=== PATIENT | female | born 1950 | race Asian ===

== ENCOUNTER → 2017-07-15 | Outpatient (CLI) | payer OTHER ==
[~2017-07-15] MED LIST: ALENDRONATE SOD70 MG PO; AMOXICILLIN875 MG PO; CENTRUM SILVER1 EAC2 PO; MEDROLDOSEPACK PO; PREDNISONE 5 MG5 M1 PO; PROMETH-CODEIN 65 ML PO; PROVENTIL HFA6.7 G1 INH; TUMS PO; VITAMINC500 PO
--- NOTE | ~2017-07-15 | 2DMMODE ---
[facility] [address] [place] [address] 2 D/M-MODE ECHOCARDIOGRAM Name: GURPREET RUBALCAVA BEATA Room #: [id number] Admission: 07/15/17 Attend Phys: Jorge Domínguez, Discharge: Date of : 46 Date of Service: 07/15/17 1552 Report #: [id number] THIS REPORT FOR: //name// APPROVED REPORT Study performed: 07/15/2017 14:10:35 EXAM: Comprehensive 2D, Doppler, and color-flow Echocardiogram Patient Location: Out-Patient Room #: Echo lab Status: routine BSA: 1.78 HR: 77 bpm BP: 162/84 mmHg Other Information Study Quality: Adequate Indications Pulmonary Hypertension Dyspnea 2D Dimensions RVDd: 37.44 mm LVEF(%): 63.43 (>50%) IVSd: 12.90 (7-11mm) LVOT Diam: 20.12 (18-24mm) LVDd: 39.88 mm PWd: 11.54 (7-11mm) Ascending Ao: 29.88 (22-36mm) LVDs: 26.34 (25-40mm) Aortic Root: 31.14 mm IVC: 22.00 mm Thurston's LVEF: 63.43 % Volumes Left Atrial Volume (Systole) Single Plane 4CH: 50.01 mL Single Plane 2CH: 41.66 mL LA ESV Index: 28.00 mL/m2 Aortic Valve AoV Peak Cortes.: 1.41 m/s AO Peak Gr.: 7.95 mmHg LVOT Max P.35 mmHg LVOT Max V: 1.26 m/s Vmax: 2.84 cm2 Mitral Valve E/A Ratio: 0.5 MV Decel. Time: 391.20 ms [facility] [place] [address] 2 D/M-MODE ECHOCARDIOGRAM Name: GURPREET RUBALCAVA Room #: [facility]#: [id number] Admission: 07/15/17 Attend Phys: Jorge Domínguez, Discharge: Date of : 46 Date of Service: 07/15/17 1552 Report #: [id number] MV E Max Cortes.: 0.77 m/s MV A Cortes.: 1.44 m/s MV PHT: 113.45 ms IVRT: 143.02 ms Pulmonary Valve PV Peak Cortes.: 1.03 m/s PV Peak Gr.: 4.27 mmHg Pulmonary Vein P Vein S: 0.75 m/s P Vein A: 0.30 m/s P Vein D: 0.48 m/s P Vein A Dur.: 124.6 msec P Vein S/D Ratio: 1.56 Tricuspid Valve TR Peak Cortes.: 3.43 m/s TR Peak Gr.: 47.00 mmHg PA Pressure: 57.00 mmHg Left Ventricle The left ventricle is normal size. Mild concentric left ventricular hypertrophy. The left ventricular systolic function is normal. The left ventricular ejection fraction is within the normal range. LVEF is 60-65%. Grade I - abnormal relaxation pattern. Right Ventricle The right ventricle is normal size. The right ventricular systolic function is normal. Atria The left atrium size is normal. The right atrium size is normal. Aortic Valve The aortic valve is normal in structure. Trace to mild aortic regurgitation. There is no aortic valvular stenosis. Mitral Valve The mitral valve is normal in structure. There is no mitral valve regurgitation noted. No evidence of mitral valve stenosis. Tricuspid Valve The tricuspid valve is normal in structure. There is trace to mild tricuspid regurgitation. The right atrial pressure is estimated at mmHg. There is moderate pulmonary hypertension. Pulmonic Valve [address] [address] 2 D/M-MODE ECHOCARDIOGRAM Name: GURPREET RUBALCAVA BEATA Room #: REG CL [facility]#: [id number] Admission: 07/15/17 Attend Phys: Jorge Domínguez, Discharge: Date of : 46 Date of Service: 07/15/17 1552 Report #: [id number] The pulmonary valve is normal in structure. Trace pulmonic regurgitation. Great Vessels The aortic root is normal in size. IVC is dilated and collapses >50% with inspiration. Pericardium There is no pericardial effusion. <Conclusion> The left ventricle is normal size. LVEF is 60-65%. The aortic valve is normal in structure. Trace to mild aortic regurgitation. The mitral valve is normal in structure. The pulmonary valve is normal in structure. Trace pulmonic regurgitation. <ELECTRONICALLY SIGNED> By: Wood Hatch MD 07/15/17 [phone] Wood Hatch MD /INF
== END ==
LOC: CV 13:34
DX: I27.20 Pulmonary hypertension, unspecified (principal); R06.00 Dyspnea, unspecified

== ENCOUNTER 2017-09-20 09:46 | Inpatient (IN) | payer OTHER ==
[2017-09-20] VITALS (15 sets, daily range): BP systolic 81–119; BP diastolic 45–79
[~2017-09-20] VITALS: Ht 157.5 cm; Wt 70.6 kg
--- NOTE | ~2017-09-20 | H ---
[facility] [place] [address] HISTORY AND PHYSICAL Name: GURPREET RUBALCAVA Room #: 241-P ADM IN M.R.#: [id number] Admission: 09/20/17 Attend Phys: Rigoberto Franco MD Discharge: Date of : 46 Report #: [id number] THIS REPORT FOR: //name// CC: Hussain Franco DATE OF SERVICE: 09/20/2017 CHIEF COMPLAINT: Generalized weakness and shaking. HISTORY OF PRESENT ILLNESS: The patient is a 66-year-old female with history of bronchiolitis obliterans organizing pneumonia, who has not felt well during last few days or so. The patient states that she lost appetite for some reason. She continued to take her large doses of diuretics, including metolazone and furosemide. She is on furosemide 80 mg b.i.d. and metolazone 2.5 mg 3 times a week. Last few days, the patient became very shaky and weak. She presented to the Emergency Room. The patient was found to have sodium of 121, potassium of 2.0, chloride 71, and creatinine 1.7, from normal about a year ago. The patient takes immunosuppressive regimen, including prednisone and mycophenolate, for her bronchiolitis obliterans organizing pneumonia. The patient tells me that recently she is suspected to have rheumatoid arthritis, affecting her lungs. She is on oxygen by nasal cannula, between 4-6 liters at home. The patient was started on IV fluids in the Emergency Room, as well as she received potassium supplementation. She feels better. The patient had cardiac echo done in July of this year that showed normal ejection fraction, and was essentially unremarkable. PAST MEDICAL HISTORY: 1. 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 2. Newly diagnosed diabetes mellitus type 2. 3. Lower extremity swelling, chronic. HOME MEDICATIONS: Include metformin 500 mg b.i.d., started about a week ago; calcium supplementation 500 mg a day, Lasix 80 mg b.i.d., metolazone 2.5 mg 3 times a week, potassium supplementation 20 mEq a day, prednisone 5 mg a day, and CellCept 500 mg b.i.d. FAMILY HISTORY: Reviewed and not pertinent to the patient's current condition. [address] [address] HISTORY AND PHYSICAL Name: GURPREET RUBALCAVA [facility] Room #: 241-P [facility] IN .R.#: [id number] Admission: 09/20/17 Attend Phys: Rigoberto Franco MD Discharge: Date of : 46 Report #: [id number] SOCIAL HISTORY: The patient does not smoke cigarettes and does not drink alcohol. REVIEW OF SYSTEMS: As above in HPI section, all others negative. PHYSICAL EXAMINATION: GENERAL: The patient is an elderly female who is in no apparent distress. VITAL SIGNS: Her blood pressure is 123/63, from 100/52 earlier. Heart rate is 68, respiration is 18, temperature is 97.8, and oxygen saturation is 98%. HEENT: Pupils are equal. Eye movements are normal. Sclerae are anicteric. NECK: Supple. The patient has no JVD. Thyromegaly is not palpated. LUNGS: Clear to auscultation bilaterally. CARDIOVASCULAR: The patient has regular rhythm and rate. She has no murmurs, gallops or rubs. GASTROINTESTINAL: Abdomen is soft, nondistended and nontender. Bowel sounds are present. The patient has no hepatomegaly or splenomegaly. MUSCULOSKELETAL: Range of motion is normal. The patient has no edema, cyanosis or clubbing. NEUROLOGIC: The patient is alert and oriented x 3. She has nonfocal examination. SKIN: Reveals no skin lesions. Skin is dry and warm. LABORATORY DATA: As noted, sodium is 121, potassium 2.0, chloride is 71, bicarbonate is 39, creatinine is 1.7, BUN is 46. Calcium is 10.4, total bilirubin is 1.1. Liver function tests normal, lactic acid is 4.1, from 5.5 earlier. Troponin is 0.16, which is stable and not rising. CBC with differential is normal, MCV slightly high at 101. Urinalysis is consistent with UTI. Many bacteria are present, white cells between 6 and 15. ABG showed pH of 7.59, pO2 of 109, pCO2 of 42.3. On chest x-ray, the patient has no acute findings, head CT scan is also unremarkable, as well as L-spine CT. ASSESSMENT AND PLAN: 1. Major electrolyte disturbances, namely severe hyponatremia and hypokalemia, most likely due to diminished p.o. intake during the last few days, while using prescription diuretics. As noted, the patient is on Lasix 80 mg b.i.d. and metolazone 2.5 mg 3 times a week. The patient is already started on IV fluids, and potassium is being replaced. Labs will be followed closely, and electrolytes will be replaced further as necessary. 2. Acute kidney injury, with creatinine of 1.7, normal baseline about a year ago. Likely volume contraction from over diuresis. Improvement is anticipated. 3. Lactic acidosis, due to hypoperfusion, and volume contraction. Already improving. The patient has no evidence of sepsis. 4. Iatrogenic adrenal insufficiency, due to taking chronic steroids for her rheumatoid lung disease. The patient will be treated with stress doses of IV [facility] [address] [place] [address] HISTORY AND PHYSICAL Name: GURPREET RUBALCAVA Room #: 241-P ADM IN M.R.#: [id number] Admission: 09/20/17 Attend Phys: Rigoberto Franco MD Discharge: Date of : 46 Report #: [id number] Solu-Cortef, while the patient is sick. Solu-Cortef can shortly be changed to the oral prednisone, higher doses, and then rapidly tapered down to a maintenance dose, i.e. 5 mg a day. 5. Newly diagnosed diabetes mellitus type 2. Hold metformin for now, while lactic acid and creatinine are elevated. Treat the patient with sliding scale insulin. 6. Deep venous thrombosis and gastrointestinal prophylaxis. Renally adjusted Lovenox and proton pump inhibitor respectively. 7. Urinary tract infection. The patient is started on Rocephin. Urine cultures are requested. By: 1502 1523 Rigoberto Franco MD /nt
--- NOTE | ~2017-09-20 | EKG ---
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
[2017-09-20] MEDS ORDERED: TESSALON PERLE100 MG PO (10:47)
[2017-09-20] MEDS ORDERED: CELLCEPT500 MG PO (10:47)
[2017-09-20 10:48] LABS: HEMOGLOBIN 13.1 gm/dL (12.0-15.0); MCH 34.8 pg (26.0-34.0); MCHC 34.4 g/dL (28.0-37.0); MCV 101.2 fL (80.0-100.0); PLATELET COUNT 194 thou/uL (150-400); RBC 3.76 mil/uL (4.20-5.00); RDW 13.8 % (10.5-14.5); WBC 10.2 thou/uL (4.0-11.0)
[2017-09-20] MEDS ORDERED: METFORMIN HCL500 MG PO (10:48)
[2017-09-20] MEDS ORDERED: LASIX 80 MG TAB80 MG PO (10:49)
[2017-09-20] MEDS ORDERED: METOLAZONE 2.52.5 M1 PO (10:49)
[2017-09-20 10:50] LABS: MANUAL DIFF YES
[2017-09-20] MEDS ORDERED: POTASSIUM20 PO (10:50)
[2017-09-20] MEDS ORDERED: [UNRECOGNIZED DRUG - OTHER] PO (10:52)
[2017-09-20 10:55] LABS: CALCIUM 10.4 mg/dL (8.5-10.1); CREATININE 1.7 mg/dL (0.6-1.0)
[2017-09-20 11:04] LABS: ALBUMIN 3.5 g/dL (3.4-5.0); DIRECT BILIRUBIN 0.3 mg/dL (<0.1-0.3); TOTAL BILIRUBIN 1.1 mg/dL (<0.1-1.0); TOTAL PROTEIN 7.4 g/dL (6.4-8.2); TROPONIN-I 0.16 ng/mL (<0.06)
[2017-09-20 11:23] LABS: URINE BILIRUBIN NEGATIVE (Negative); URINE BLOOD TRACE (Negative); URINE COLOR YELLOW; URINE GLUCOSE-RANDOM* NEGATIVE (Negative); URINE KETONES NEGATIVE (Negative); URINE NITRITE POSITIVE (Negative); URINE PROTEIN (DIPSTICK) NEGATIVE (Negative); URINE UROBILINOGEN 0.2 E.U./dl (0.2-1.0)
[2017-09-20 11:34] LABS: BACTERIA >30 Many /HPF (None Seen); CASTS None Seen /LPF (None Seen); CRYSTALS None Seen /LPF (None Seen); SQUAMOUS 0-3 Few /LPF (0-3); URINE RBC None Seen /HPF (0-2); URINE WBC 6-15 Few /HPF (0-5)
[2017-09-20 11:34] LABS: ABG SAMPLE TYPE ARTERIAL; BE(vivo) 16.5 mmol/L (-2 to +3); HCO3 39.9 mmol/L (22.0-26.0); LACTATE 5.99 mmol/L (0.5-2.0); O2(CT) 19.1 mL/dL (15.0-23.0); O2Hb 97.3 % (92.0-98.0); PCO2 42.3 mmHg (35.0-45.0); PO2 109.9 mmHg (80.0-100.0); STICK SITE L.BRACHIAL; pH 7.593 (7.360-7.450); sO2 98.6 % (92.0-98.0); tCO2 41.2 mmol/L (24.0-30.0)
[2017-09-20 12:03] LABS: ABSOLUTE NEUTROPHILS 8.4 thou/uL (1.4-8.2); METAMYELOCYTES 1 %; TOTAL CELL COUNT 100
[2017-09-20 12:04] LABS: MACROCYTES 1+
[2017-09-20 15:13] LABS: CALCIUM 9.7 mg/dL (8.5-10.1); CREATININE 1.3 mg/dL (0.6-1.0)
[2017-09-20 15:21] LABS: POTASSIUM 2.6 mmol/L (3.5-5.1)
[2017-09-20 21:34] LABS: CALCIUM 8.8 mg/dL (8.5-10.1); CREATININE 1.3 mg/dL (0.6-1.0); MAGNESIUM 1.5 mg/dL (1.8-2.4)
[2017-09-21] VITALS (15 sets, daily range): BP systolic 81–131; BP diastolic 36–85
[2017-09-21 04:17] LABS: ABSOLUTE NEUTROPHILS 7.1 thou/uL (1.4-8.2); BASOPHILS 0.2 % (0.0-2.0); HEMATOCRIT 31.6 % (37.0-47.0); LYMPHOCYTES 13.1 % (24.0-44.0); MCH 35.6 pg (26.0-34.0); MCHC 34.4 g/dL (28.0-37.0); MCV 103.3 fL (80.0-100.0); MONOCYTES 4.1 % (1.0-8.0); PLATELET COUNT 155 thou/uL (150-400); POLYS 82.6 % (36.0-66.0); RBC 3.06 mil/uL (4.20-5.00); RDW 13.9 % (10.5-14.5); WBC 8.6 thou/uL (4.0-11.0)
[2017-09-21 04:22] LABS: HEMOGLOBIN 10.9 gm/dL (12.0-15.0)
[2017-09-21 04:23] LABS: MANUAL DIFF NO
[2017-09-21 04:29] LABS: ALBUMIN 2.5 g/dL (3.4-5.0); CALCIUM 8.6 mg/dL (8.5-10.1); CREATININE 1.1 mg/dL (0.6-1.0); MAGNESIUM 1.6 mg/dL (1.8-2.4); POTASSIUM 3.2 mmol/L (3.5-5.1); TOTAL BILIRUBIN 0.6 mg/dL (<0.1-1.0); TOTAL PROTEIN 5.5 g/dL (6.4-8.2)
[2017-09-21 11:59] LABS: MAGNESIUM 2.4 mg/dL (1.8-2.4); POTASSIUM 3.8 mmol/L (3.5-5.1)
[2017-09-22 04:08] VITALS: BP 114/49
[2017-09-22 04:08] LABS: CALCIUM 8.3 mg/dL (8.5-10.1); CREATININE 0.9 mg/dL (0.6-1.0)
[2017-09-22 04:20] LABS: ABSOLUTE NEUTROPHILS 6.1 thou/uL (1.4-8.2); BASOPHILS 0.1 % (0.0-2.0); HEMATOCRIT 29.2 % (37.0-47.0); HEMOGLOBIN 10.1 gm/dL (12.0-15.0); LYMPHOCYTES 12.7 % (24.0-44.0); MCH 36.5 pg (26.0-34.0); MCHC 34.8 g/dL (28.0-37.0); MONOCYTES 4.2 % (1.0-8.0); PLATELET COUNT 137 thou/uL (150-400); RBC 2.78 mil/uL (4.20-5.00); RDW 13.9 % (10.5-14.5); WBC 7.4 thou/uL (4.0-11.0)
[2017-09-22 04:27] LABS: MANUAL DIFF NO
[2017-09-22 07:20] VITALS: BP 129/66
[2017-09-22 16:02] VITALS: BP 121/65
[2017-09-22 19:42] VITALS: BP 125/64
[2017-09-23 06:26] LABS: ABSOLUTE NEUTROPHILS 5.6 thou/uL (1.4-8.2); BASOPHILS 0.1 % (0.0-2.0); EOSINOPHILS 0.1 % (0.0-3.0); HEMOGLOBIN 9.9 gm/dL (12.0-15.0); LYMPHOCYTES 16.6 % (24.0-44.0); MCH 35.8 pg (26.0-34.0); MCHC 34.1 g/dL (28.0-37.0); MCV 105.1 fL (80.0-100.0); MONOCYTES 4.8 % (1.0-8.0); PLATELET COUNT 142 thou/uL (150-400); POLYS 78.4 % (36.0-66.0); RBC 2.76 mil/uL (4.20-5.00); WBC 7.2 thou/uL (4.0-11.0)
[2017-09-23 06:27] LABS: MANUAL DIFF NO
[2017-09-23 06:34] LABS: CALCIUM 7.7 mg/dL (8.5-10.1); CREATININE 0.7 mg/dL (0.6-1.0); POTASSIUM 3.1 mmol/L (3.5-5.1)
[2017-09-23 08:24] VITALS: BP 141/67
[2017-09-23 13:39] LABS: CALCIUM 7.5 mg/dL (8.5-10.1); CREATININE 0.7 mg/dL (0.6-1.0); POTASSIUM 3.7 mmol/L (3.5-5.1)
[2017-09-23 14:08] VITALS: BP 141/67
[2017-09-23 15:05] VITALS: BP 141/67
== END 2017-09-23 15:10 | disposition home or self-care (01) | DRG 682 ==
LOC: ER 09:46 → EROBS 11:25 → ICU 11:25 → 4S 09-21 12:18 → ENTRNSPT 09-23 14:51 → EDTRNSPTSTS 09-23 14:53 → 4S 09-23 15:10
PROVIDERS: Family Medicine; Internal Medicine Endocrinology, Diabetes & Metabolism; Nurse Practitioner
DX: N17.9 Acute kidney failure, unspecified (principal); E43 Unspecified severe protein-calorie malnutrition; E87.1 Hypo-osmolality and hyponatremia; E87.2 Acidosis; E27.3 Drug-induced adrenocortical insufficiency; N39.0 Urinary tract infection, site not specified; E11.9 Type 2 diabetes mellitus without complications; M79.89 Other specified soft tissue disorders; E87.6 Hypokalemia; I50.9 Heart failure, unspecified; E86.0 Dehydration; M05.10 Rheumatoid lung disease with rheumatoid arthritis of unspecified site; I27.20 Pulmonary hypertension, unspecified; J84.10 Pulmonary fibrosis, unspecified; Z96.1 Presence of intraocular lens; Z87.01 Personal history of pneumonia (recurrent); Z98.49 Cataract extraction status, unspecified eye; Z79.899 Other long term (current) drug therapy; Z79.52 Long term (current) use of systemic steroids; Y92.89 Other specified places as the place of occurrence of the external cause; Z88.2 Allergy status to sulfonamides; Z68.28 Body mass index [BMI] 28.0-28.9, adult; T38.0X5A Adverse effect of glucocorticoids and synthetic analogues, initial encounter; T50.2X5A Adverse effect of carbonic-anhydrase inhibitors, benzothiadiazides and other diuretics, initial encounter; T50.1X5A Adverse effect of loop [high-ceiling] diuretics, initial encounter
CPT/HCPCS: 10078; 10100

== ENCOUNTER → 2017-09-29 | Outpatient (CLI) | payer OTHER ==
[~2017-09-29] MED LIST changes: +CELLCEPT500 MG PO; +LASIX 80 MG TAB80 MG PO; +METFORMIN HCL500 MG PO; +METOLAZONE 2.52.5 M1 PO; +POTASSIUM20 PO; +TESSALON PERLE100 MG PO; +[UNRECOGNIZED DRUG - OTHER] PO
[2017-09-29 12:01] LABS: CALCIUM 9.9 mg/dL (8.5-10.1); CREATININE 0.7 mg/dL (0.6-1.0); MAGNESIUM 1.4 mg/dL (1.8-2.4); POTASSIUM 4.3 mmol/L (3.5-5.1); TOTAL BILIRUBIN 0.6 mg/dL (<0.1-1.0); TOTAL PROTEIN 6.1 g/dL (6.4-8.2)
== END ==
LOC: SEN 09:24
PROVIDERS: Registered Nurse
DX: J42 Unspecified chronic bronchitis (principal); R73.9 Hyperglycemia, unspecified; B35.9 Dermatophytosis, unspecified; R60.9 Edema, unspecified

== ENCOUNTER → 2018-01-21 | Outpatient (CLI) | payer OTHER | LOC: CAT 10:30 | DX: J84.9 Interstitial pulmonary disease, unspecified (principal) ==

== ENCOUNTER → 2018-02-09 | Outpatient (CLI) | payer OTHER ==
--- NOTE | ~2018-02-09 | 2DMMODE ---
[facility] [address] [place] [address] 2 D/M-MODE ECHOCARDIOGRAM Name: GURPREET RUBALCAVA BEATA Room #: REG [facility]#: [id number] Admission: 02/09/18 Attend Phys: Jorge Domínguez, Discharge: Date of : 46 Date of Service: 02/09/18 1252 Report #: [id number] THIS REPORT FOR: //name// APPROVED REPORT Study performed: 02/09/2018 11:15:28 EXAM: Comprehensive 2D, Doppler, and color-flow Echocardiogram Patient Location: Out-Patient Status: routine BSA: 1.78 HR: 69 bpm BP: 162/84 mmHg Rhythm: NSR Other Information Study Quality: Adequate Indications Pulmonary HTN. 2D Dimensions RVDd: 33.90 mm LVEF(%): 65.27 (>50%) IVSd: 11.84 (7-11mm) LVOT Diam: 21.04 (18-24mm) LVDd: 45.72 mm PWd: 13.04 (7-11mm) Ascending Ao: 36.35 (22-36mm) LVDs: 29.41 (25-40mm) Aortic Root: 32.74 mm Thurston's LVEF: 65.27 % Volumes Left Atrial Volume (Systole) Single Plane 4CH: 50.35 mL Single Plane 2CH: 64.69 mL LA ESV Index: 34.00 mL/m2 Aortic Valve AoV Peak Cortes.: 1.39 m/s AO Peak Gr.: 7.69 mmHg LVOT Max P.49 mmHg LVOT Max V: 1.06 m/s Vmax: 2.66 cm2 Mitral Valve E/A Ratio: 0.6 MV Decel. Time: 333.02 ms [facility] [address] [place] [address] 2 D/M-MODE ECHOCARDIOGRAM Name: KHADARGURPREET BEATA Room #: [facility]#: [id number] Admission: 02/09/18 Attend Phys: Jorge Domínguez, Discharge: Date of : 46 Date of Service: 02/09/18 1252 Report #: [id number] MV E Max Cortes.: 0.78 m/s MV A Cortes.: 1.23 m/s MV PHT: 96.57 ms IVRT: 101.50 ms Pulmonary Valve PV Peak Cortes.: 0.96 m/s PV Peak Gr.: 3.72 mmHg Pulmonary Vein P Vein S: 0.51 m/s P Vein D: 0.63 m/s P Vein S/D Ratio: 0.81 Tricuspid Valve TR Peak Cortes.: 2.82 m/s RAP Estimate: 5.00 mmHg TR Peak Gr.: 31.87 mmHg PA Pressure: 37.00 mmHg Left Ventricle The left ventricle is normal size. There is normal LV segmental wall motion. Mild concentric left ventricular hypertrophy. Left ventricular systolic function is normal. LVEF is 55%. Mild diastolic dysfunction is present (impaired relaxation pattern). Right Ventricle The right ventricle is normal size. The right ventricular systolic function is normal. Atria Left atrium is mildly dilated. The right atrium size is normal. Aortic Valve Aortic valve is mildly calcified. Mild aortic regurgitation. There is no aortic valvular stenosis. Mitral Valve Moderately heavy mitral annular calcification. Mild mitral regurgitation. No evidence of mitral valve stenosis. Tricuspid Valve The tricuspid valve is normal in structure. Mild tricuspid regurgitation. Estimated PAP is 35-40mmHg. Pulmonic Valve The pulmonary valve is normal in structure. Mild pulmonic [facility] [address] [place] [address] 2 D/M-MODE ECHOCARDIOGRAM Name: GURPREET RUBALCAVA [facility] Room #: REG [facility].#: [id number] Admission: 02/09/18 Attend Phys: Jorge Domínguez, Discharge: Date of : 46 Date of Service: 02/09/18 1252 Report #: [id number] regurgitation. Great Vessels The aortic root is normal in size. The ascending aorta is normal in size. IVC is normal in size and collapses >50% with inspiration. Pericardium There is no pericardial effusion. <Conclusion> Left ventricular systolic function is normal. There is normal LV segmental wall motion. LVEF is 55%. Mild diastolic dysfunction Left atrium is mildly dilated. Aortic valve is mildly calcified, no stenosis. Mild aortic regurgitation. Moderately heavy mitral annular calcification. Mild mitral regurgitation. Mild tricuspid regurgitation. Estimated pulmonary artery pressure of 35-40mmHg. There is no pericardial effusion. <ELECTRONICALLY SIGNED> By: Darinel Farrar MD, [facility] 02/09/18 1252 1252 1252 Darinel Farrar MD, FAC /INF
== END ==
LOC: CV 09:20
DX: I27.20 Pulmonary hypertension, unspecified (principal); I08.3 Combined rheumatic disorders of mitral, aortic and tricuspid valves; I70.8 Atherosclerosis of other arteries

== ENCOUNTER → 2018-08-17 | Outpatient (CLI) | payer OTHER | LOC: CAT 12:09 | DX: J43.9 Emphysema, unspecified (principal); J84.9 Interstitial pulmonary disease, unspecified; I51.7 Cardiomegaly; K44.9 Diaphragmatic hernia without obstruction or gangrene; M47.814 Spondylosis without myelopathy or radiculopathy, thoracic region ==

== ENCOUNTER → 2019-01-12 | Outpatient (CLI) | payer OTHER | LOC: RAD 10:05 | DX: J44.9 Chronic obstructive pulmonary disease, unspecified (principal); I51.7 Cardiomegaly ==

== ENCOUNTER → 2019-07-05 | Outpatient (CLI) | payer OTHER ==
--- NOTE | 2019-07-05 10:16 | 2DMMODE ---
[facility] [address] [place] [address] 2 D/M-MODE ECHOCARDIOGRAM Name: GURPREET RUBALCAVA BEATA Room #: REG [facility]#: [id number] Admission: 07/05/19 Attend Phys: Jorge Domínguez, Discharge: Date of : 46 Report #: [id number] THIS REPORT FOR: //name// APPROVED REPORT Study performed: 07/05/2019 09:03:16 EXAM: Comprehensive 2D, Doppler, and color-flow Echocardiogram Patient Location: Out-Patient Status: routine BSA: 1.78 HR: 62 bpm BP: 170/82 mmHg Rhythm: NSR Other Information Study Quality: Adequate Indications Pulmonary Hypertension Diabetes 2D Dimensions RVDd: 34.15 mm IVSd: 12.24 (7-11mm) LVOT Diam: 19.64 (18-24mm) LVDd: 44.90 mm PWd: 11.23 (7-11mm) Ascending Ao: 35.37 (22-36mm) LVDs: 25.73 (25-40mm) Aortic Root: 33.91 mm Volumes Left Atrial Volume (Systole) Single Plane 4CH: 55.86 mL Single Plane 2CH: 61.87 mL Aortic Valve AoV Peak Cortes.: 1.46 m/s AO Peak Gr.: 8.49 mmHg LVOT Max P.98 mmHg LVOT Max V: 1.22 m/s Vmax: 2.54 cm2 Mitral Valve E/A Ratio: 0.7 MV Decel. Time: 335.21 ms MV E Max Cortes.: 0.93 m/s [facility] [address] [place] [place] [address] 2 D/M-MODE ECHOCARDIOGRAM Name: GURPREET RUBALCAVA BEATA Room #: REG [facility]#: [id number] Admission: 07/05/19 Attend Phys: Jorge Domínguez, Discharge: Date of : 46 Report #: [id number] MV A Cortes.: 1.40 m/s MV PHT: 97.21 ms IVRT: 101.50 ms Pulmonary Valve PV Peak Cortes.: 1.11 m/s PV Peak Gr.: 4.94 mmHg Tricuspid Valve TR Peak Cortes.: 3.08 m/s RAP Estimate: 5.00 mmHg TR Peak Gr.: 37.93 mmHg PA Pressure: 43.00 mmHg Left Ventricle The left ventricle is normal size. Mild concentric left ventricular hypertrophy. The left ventricular systolic function is normal. The left ventricular ejection fraction is within the normal range. LVEF is 60%. Mild diastolic dysfunction is present (impaired relaxation pattern). Right Ventricle The right ventricle is normal size. The right ventricular systolic function is normal. Atria Left atrium is dilated. The right atrium size is normal. Aortic Valve The aortic valve is normal in structure. Mild aortic regurgitation. There is no aortic valvular stenosis. Mitral Valve Severe mitral annular calcification. Mild mitral regurgitation. No evidence of mitral valve stenosis. Tricuspid Valve The tricuspid valve is normal in structure. Mild tricuspid regurgitation. Estimated PAP is 43mmHg Pulmonic Valve Pulmonic valve is not well visualized. Mild pulmonic regurgitation. Great Vessels The aortic root is normal in size. The ascending aorta is normal in size. IVC is normal in size and collapses >50% with inspiration. [facility] [address] [place] [address] 2 D/M-MODE ECHOCARDIOGRAM Name: GURPREET RUBALCAVA BEATA [id number] Admission: 07/05/19 Attend Phys: Jorge Domínguez, Discharge: Date of : 46 Report #: [id number] Pericardium There is no pericardial effusion. <Conclusion> The left ventricle is normal size. LVEF is 60%. Left atrium is dilated. The aortic valve is normal in structure. Mild aortic regurgitation. Severe mitral annular calcification. Mild mitral regurgitation. The tricuspid valve is normal in structure. Mild tricuspid regurgitation. Estimated PAP is 43mmHg Pulmonic valve is not well visualized. Mild pulmonic regurgitation. There is no pericardial effusion. <ELECTRONICALLY SIGNED> By: Wood Hatch MD 07/05/19 1016 1016 Francois Hatch MD /INF
== END ==
LOC: CV 08:39 → CAT 08:39
DX: I08.8 Other rheumatic multiple valve diseases (principal); J84.9 Interstitial pulmonary disease, unspecified; K80.20 Calculus of gallbladder without cholecystitis without obstruction; I11.9 Hypertensive heart disease without heart failure

== ENCOUNTER 2019-10-13 17:09 | Inpatient (IN) | payer OTHER ==
[~2019-10-13] VITALS: Ht 154.9 cm; Wt 73.5 kg
[2019-10-13 17:35] VITALS: BP 118/44
[2019-10-13] MEDS ORDERED: METFORMIN HCL500 M3 PO (17:51)
[2019-10-13] MEDS ORDERED: MYCOPHENOLATE500 MG PO (17:52)
[2019-10-13] MEDS ORDERED: RAYOS5 MG PO (17:54)
[2019-10-13] MEDS ORDERED: COZAAR 25 MG TA25 M1 PO (17:55)
[2019-10-13] MEDS ORDERED: LIPITOR 20 MG T20 M1 PO (17:56)
[2019-10-13] MEDS ORDERED: FOSAMAX 70 MG T70 MG PO (17:59)
[2019-10-13 18:04] LABS: HEMATOCRIT 34.8 % (37.0-47.0); HEMOGLOBIN 11.5 gm/dL (12.0-15.0); MCV 103.1 fL (80.0-100.0); RBC 3.37 mil/uL (4.20-5.00); RDW 13.3 % (10.5-14.5); WBC 9.4 thou/uL (4.0-11.0)
[2019-10-13 18:12] LABS: CALCIUM 9.8 mg/dL (8.5-10.1); CREATININE 0.8 mg/dL (0.6-1.0); POTASSIUM 3.7 mmol/L (3.5-5.1)
[2019-10-13 18:18] LABS: TOTAL BILIRUBIN 0.4 mg/dL (<0.1-1.0); TOTAL PROTEIN 7.4 g/dL (6.4-8.2)
[2019-10-13 19:43] LABS: URINE BILIRUBIN NEGATIVE (Negative); URINE BLOOD TRACE (Negative); URINE CLARITY CLOUDY; URINE COLOR YELLOW; URINE GLUCOSE-RANDOM* NEGATIVE (Negative); URINE KETONES TRACE (Negative); URINE LEUKOCYTES TRACE (Negative); URINE NITRITE POSITIVE (Negative); URINE PROTEIN (DIPSTICK) NEGATIVE (Negative)
[2019-10-13 19:57] LABS: BACTERIA >30 Many /HPF (None Seen); CALCIUM OXALATE 4-10 Moderate /LPF (None Seen); SQUAMOUS 0-3 Few /LPF (0-3); URINE WBC 0-5 Rare /HPF (0-5)
[2019-10-13 19:58] LABS: CASTS None Seen /LPF (None Seen); URINE RBC 3-10 Few /HPF (0-2)
[2019-10-13 20:16] VITALS: BP 155/69
[2019-10-13 22:20] LABS: TSH 0.67 uIU/mL (0.358-3.740)
[2019-10-14 00:06] VITALS: BP 143/49
--- NOTE | 2019-10-14 00:19 | NUR ---
ASSUMED CARE OF PT AT 1900. ASSMT DOCUMENTED. COOPERATIVE W/ TX AND CARE. CURRENTLY RESTING. REPORT GIVEN TO ANOTHER RN FOR CARE DURING REST OF SHIFT.
--- NOTE | 2019-10-14 04:59 | NUR ---
RESSUMED CARE FROM OUTGOING RN. PT ASLEEP ON ASSESSMENT. LATER CALL TO USE THE BATHROOM. UP WITH SBA. ON 5L OF O2. IV INTACT AND FLUIDS INFUSING. CALLED ONCALL TO CONFIRM IF PT STATUS. PT NOW SWITCHED TO MEDSURGE STATUS. CONGESTED COUGH NOTED. PT GETS SCHEDULED BX. CALL LIGHT WITHIN REACH AND WILL CONT WITH POC TILL EOS.
[2019-10-14 05:00] VITALS: BP 124/62
[2019-10-14 07:25] VITALS: BP 150/93
--- NOTE | 2019-10-14 13:51 | NUR ---
INITIAL ASSESSMENT: SW reviewed chart and spoke with nursing and attending physician. Pt was admitted from her PCP's office due to pneumonia. Pt with hx of COPD. Pt is currently on IV abx and IV steroids. Pt may be ready for discharge over the weekend. NIEVES met with pt and dtr, Margarita, at bedside. Introduced role of SW. Pt is alert/orientated x 4. Pt reports she lives at home. Prior to admission, pt was independent with ADLs. No use of DME. Pt is normally on 4-5L of O2 at home. Home O2 is provided by [employer]. Pt's dtr states pt has had HH in the past, but unsure of HH provider. Pt's dtr requesting info on private duty agencies. SW to provide [employer] to pt/dtr for review. Pt's PCP is Dr. Walsh. Pt's family will be able to provide transportation home. No additional SW needs identified at this time, but is available to assist should needs arise.
--- NOTE | 2019-10-14 14:53 | NUR ---
Pt tolerated ambulation well, was on 6L. Daughter visiting with pt. updated on care. pt denies any needs. pt is progressing towards poc.
[2019-10-14 15:26] VITALS: BP 129/81
--- NOTE | 2019-10-14 16:20 | NUR ---
report given to Lashonda, 4S nurse. pt belongings pack and sent with pt. 4505 pt transfered to 440
--- NOTE | 2019-10-14 16:49 | NUR ---
Pt transferred from 3W approx 1615. A&ox4. On 4L O2. SBA. Denies pain. Family at bedside. Pt is Tajik, cannot read lao but understands the language and speaks it fluently. Will continue to monitor.
[2019-10-14 17:00] VITALS: BP 150/74
[2019-10-14 20:05] VITALS: BP 162/76
--- NOTE | 2019-10-15 00:54 | NUR ---
ASSUMED CARE OF PT @1900 PT ASSESSED AT START OF SHIFT A&OX4 DENIES PAIN. CONGESTED COUGH NOTED. COUGH MEDICATION GIVEN AND STERIOD MEDS. IV INTACT AND SALINE LOCK PT AD CA AND CALL LIGHT WITHIN REACH WILL CONT WITH POC TILL EOS
[2019-10-15 05:05] VITALS: BP 119/74
[2019-10-15 08:00] VITALS: BP 147/65
--- NOTE | 2019-10-15 10:57 | NUR ---
Assumed care of pt at 0700. Pt a&ox4. Denies pain. On 4L O2. Ambulates with steady gait. IV antibiotics infusing. Congested cough. Possible d/c Thursday. Call light within reach. Family at bedside. Will continue to monitor.
[2019-10-15 17:22] VITALS: BP 162/67
[2019-10-15 19:30] VITALS: BP 144/56
--- NOTE | 2019-10-16 03:25 | NUR ---
PT IS VERY PLEASANT. UP AD CA. CONTINUES ON .PT REPORTS FEELING ALOT BETTER. LUNGS COARSE. SHE HAS A PRODUCTIVE COUGH-THICK YELLOW SPUTUM NOTED. CONTINUES ON TREATMENT PER CARE PLAN.
[2019-10-16 04:19] VITALS: BP 132/68
[2019-10-16 08:28] VITALS: BP 177/69
--- NOTE | 2019-10-16 13:50 | NUR ---
ASSUMED CARE OF THE PT AT 0700. PT HAD NO C/O PAIN. PT IS AMBULATORY AND WALKS IN THE ROOM WITH A NASAL CANNULA AT 4.0L BASELINE. LUNG SOUNDS ARE COARSE AND BREATHING IS LABORED. PT BECOMES SOA WITH EXERTION AND REQUIRES REST BETWEEN ACTIVITIES. L WRIST IV DRY AND INTACT. CALL LIGHT IS WITHIN REACH. RADIAL PULSES ARE STRONG. NO NEW WOUNDS ON THE SKIN. WILL CONTINUE TO MONITOR THE PT.
[2019-10-16 17:30] VITALS: BP 158/55
[2019-10-16 19:56] VITALS: BP 171/69
--- NOTE | 2019-10-17 01:38 | NUR ---
ASSESSMENT COMPLETED.PT CALM AND PLEASANT.UP ADLIB TO THE BR.PT CONT ON 4L/NC. PT DENIED PAIN SO FAR.PT SLEEPING ON HER BED AT THIS TIME.CALL LIGHT WITHIN REACH.
[2019-10-17 03:26] VITALS: BP 164/62
[2019-10-17 07:11] VITALS: BP 116/100
[2019-10-17 15:18] VITALS: BP 176/78
--- NOTE | 2019-10-17 17:50 | NUR ---
ASSESSED AT START OF SHIFT. PT DOING MUCH BETTER PER DR. ARMENTA. DR. WHITLEY SAW PT TODAY IN CONSULT. PLAN FOR DISCHARGE TOMORROW. COUGHING UP SM AMTS MUCOUS. SOME SOB W/ AMBULATION.
[2019-10-17 20:42] VITALS: BP 195/91
--- NOTE | 2019-10-18 02:30 | NUR ---
ASSESSMENT COMPLETED.PT DENIED PAIN SO FAR.PT STILL HAVE NON PRODUCTIVE COUGH,PRN COUGH MED ADMINISTERED PER PT'S REQUEST.UP ADLIB IN HER ROOM.PT CONT ON 4L/NC.PT'S BP WAS ELEVATED AT START OF SHIFT,BOX FINISHER ON DUTY NOTIFIED,ORDER NOTED AND CARRIED OUT.PT RESTING ON HER BED AT THIS TIME.CALL LIGHT WITHIN REACH.
[2019-10-18 03:30] VITALS: BP 142/57
[2019-10-18 08:30] VITALS: BP 164/65
[2019-10-18] MEDS ORDERED: IPRAT-ALBUT 0.5-3 ML INH (12:36)
[2019-10-18] MEDS ORDERED: BENZONATATE100 MG PO (12:36)
[2019-10-18] MEDS ORDERED: CEFDINIR300 MG PO (12:36)
[2019-10-18] MEDS ORDERED: DOXYCYCLINE HYC50 MG PO (12:36)
[2019-10-18] MEDS ORDERED: MUCINEX600 MG PO (12:36)
[2019-10-18] MEDS ORDERED: RAYOS5 MG PO (12:36)
[2019-10-18] MEDS ORDERED: NORVASC5 MG PO (14:17)
[2019-10-18] MEDS ORDERED: HYDROCHLOROTHIA25 M1 PO (14:17)
[2019-10-18 15:36] VITALS: BP 164/65
--- NOTE | 2019-10-18 18:01 | NUR ---
DC ORDERS RECEIVED. DC INSTRUCTIONS, SCRIPTS AND F/U APPOINTMENTS REVIEWED WITH PT. SCRIPTS TRANSFERED TO THE RIGHT PHARMACY. PT ESCORTED BY VOLUNTEER TO MAIN ENTRANCE.
== END 2019-10-18 16:23 | disposition home or self-care (01) | DRG 196 ==
LOC: 4S 17:09 → 3W 17:09 → 4S 10-14 16:03 → ENTRNSPT 10-18 16:23
PROVIDERS: Nurse Practitioner; ADMIT Hospitalist
DX: J84.89 Other specified interstitial pulmonary diseases (principal); J18.9 Pneumonia, unspecified organism; J96.21 Acute and chronic respiratory failure with hypoxia; N39.0 Urinary tract infection, site not specified; I10 Essential (primary) hypertension; E78.5 Hyperlipidemia, unspecified; E11.9 Type 2 diabetes mellitus without complications; M06.9 Rheumatoid arthritis, unspecified; Z99.81 Dependence on supplemental oxygen; Z79.52 Long term (current) use of systemic steroids; Z88.2 Allergy status to sulfonamides
CPT/HCPCS: 10080; 10102; 10879

== ENCOUNTER → 2020-03-01 | Outpatient (CLI) | payer OTHER ==
[~2020-03-01] MED LIST changes: +BENZONATATE100 MG PO; +CEFDINIR300 MG PO; +COZAAR 25 MG TA25 M1 PO; +DOXYCYCLINE HYC50 MG PO; +FOSAMAX 70 MG T70 MG PO; +HYDROCHLOROTHIA25 M1 PO; +IPRAT-ALBUT 0.5-3 ML INH; +LIPITOR 20 MG T20 M1 PO; +METFORMIN HCL500 M3 PO; +MUCINEX600 MG PO; +MYCOPHENOLATE500 MG PO; +NORVASC5 MG PO; +RAYOS5 MG PO
== END ==
LOC: RAD 09:49
DX: J84.9 Interstitial pulmonary disease, unspecified (principal)

== ENCOUNTER → 2020-03-21 | Outpatient (CLI) | payer OTHER ==
--- NOTE | 2020-03-21 10:48 | 2DMMODE ---
[facility] [place] [address] 2 D/M-MODE ECHOCARDIOGRAM Name: GURPREET RUBALCAVA Room #: REG [facility]#: [id number] Admission: 03/21/20 Attend Phys: Jorge Domínguez MD Discharge: Date of : 46 Report #: [id number] THIS REPORT FOR: cc: Marco Walsh,Wood Liu MD ~ APPROVED REPORT Study performed: 03/21/2020 10:00:08 EXAM: Comprehensive 2D, Doppler, and color-flow Echocardiogram Patient Location: Out-Patient Status: routine BSA: 1.71 HR: 60 bpm BP: 150/82 mmHg Rhythm: NSR Other Information Study Quality: Adequate Technically limited study due to lung disease. Indications Pulmonary Hypertension 2D Dimensions RVDd: 27.17 mm IVSd: 12.13 (7-11mm) LVOT Diam: 20.66 (18-24mm) LVDd: 42.00 mm PWd: 12.00 (7-11mm) Ascending Ao: 33.23 (22-36mm) LVDs: 27.89 (25-40mm) Aortic Root: 34.97 mm Volumes Left Atrial Volume (Systole) Single Plane 4CH: 46.73 mL Single Plane 2CH: 60.83 mL LA ESV Index: 33.00 mL/m2 Aortic Valve AoV Peak Cortes.: 1.86 m/s AO Peak Gr.: 13.79 mmHg LVOT Max P.04 mmHg AO Mean Gr.: 7.68 mmHg [facility] [address] [address] 2 D/M-MODE ECHOCARDIOGRAM Name: GURPREET RUBALCAVA Room #: REG [facility]#: [id number] Admission: 03/21/20 Attend Phys: Jorge Domínguez, Discharge: Date of : 46 Report #: [id number] AO V2 Mean: 1.33 m/s LVOT Max V: 1.23 m/s AO V2 VTI: 36.22 cm Vmax: 2.22 cm2 AI Vmax: 4.66 m/s AI Millard: 1.92 m/s2 AI PHT: 702.91 ms Mitral Valve E/A Ratio: 0.6 MV Decel. Time: 286.93 ms MV E Max Cortes.: 0.71 m/s MV A Cortes.: 1.28 m/s MV PHT: 83.21 ms IVRT: 129.18 ms Pulmonary Valve PV Peak Cortes.: 1.08 m/s PV Peak Gr.: 4.64 mmHg Tricuspid Valve TR Peak Cortes.: 2.78 m/s RAP Estimate: 5.00 mmHg TR Peak Gr.: 31.00 mmHg PA Pressure: 36.00 mmHg Left Ventricle The left ventricle is normal size. There is normal LV segmental wall motion. Mild concentric left ventricular hypertrophy. Left ventricular systolic function is normal. LVEF is 65%. Mild diastolic dysfunction is present (impaired relaxation pattern). Right Ventricle The right ventricle is normal size. The right ventricular systolic function is normal. Atria Left atrium is dilated. The right atrium size is normal. Aortic Valve Aortic valve is mildly calcified. Mild aortic regurgitation. There is no aortic valvular stenosis. Mitral Valve Heavily calcified annulus. The mitral valve is normal in structure. There is no mitral valve regurgitation noted. No evidence of mitral valve stenosis. Tricuspid Valve [facility] [place] [address] 2 D/M-MODE ECHOCARDIOGRAM Name: GURPREET RUBALCAVA BEATA [id number] Admission: 03/21/20 Attend Phys: Jorge Domínguez, Discharge: Date of : 46 Report #: [id number] The tricuspid valve is normal in structure. Trace tricuspid regurgitation. Estimated PAP is 35-40mmHg. Pulmonic Valve The pulmonary valve is normal in structure. Mild pulmonic regurgitation. Great Vessels The aortic root is normal in size. The ascending aorta is normal in size. IVC is normal in size and collapses >50% with inspiration. Pericardium There is no pericardial effusion. <Conclusion> The left ventricle is normal size. LVEF is 65%. Left atrium is dilated. Heavily calcified annulus. The mitral valve is normal in structure. The tricuspid valve is normal in structure. Trace tricuspid regurgitation. Estimated PAP is 35-40mmHg. The pulmonary valve is normal in structure. Mild pulmonic regurgitation. There is no pericardial effusion. <ELECTRONICALLY SIGNED> By: Wood Hatch MD 03/21/20 1046 1046 1046 Wood Hatch MD /INF
== END ==
LOC: CV 09:44
PROVIDERS: ATTEND Internal Medicine
DX: I08.8 Other rheumatic multiple valve diseases (principal); I27.20 Pulmonary hypertension, unspecified

== ENCOUNTER → 2020-09-14 | Outpatient (CLI) | payer OTHER | LOC: CAT 09:58 | PROVIDERS: ATTEND Internal Medicine | DX: K80.80 Other cholelithiasis without obstruction (principal); J84.9 Interstitial pulmonary disease, unspecified; J84.10 Pulmonary fibrosis, unspecified ==

== ENCOUNTER 2020-11-15 19:28 | Emergency (ER) | payer OTHER ==
[~2020-11-15] VITALS: Ht 157.5 cm; Wt 70.8 kg
[2020-11-15 20:42] LABS: ABSOLUTE NEUTROPHILS 5.4 thou/uL (1.4-8.2); BASOPHILS 0.2 % (0.0-2.0); EOSINOPHILS 0.5 % (0.0-3.0); HEMATOCRIT 30.5 % (37.0-47.0); HEMOGLOBIN 10.3 gm/dL (12.0-15.0); LYMPHOCYTES 16.6 % (24.0-44.0); MCH 34.8 pg (26.0-34.0); MCHC 33.8 g/dL (28.0-37.0); MCV 102.9 fL (80.0-100.0); PLATELET COUNT 172 thou/uL (150-400); POLYS 73.7 % (36.0-66.0); RBC 2.96 mil/uL (4.20-5.00); WBC 7.3 thou/uL (4.0-11.0)
[2020-11-15 20:52] LABS: ANION GAP 5 mmol/L (7-16); BUN 13 mg/dL (7-18); CALCIUM 8.9 mg/dL (8.5-10.1); CHLORIDE 106 mmol/L (98-107); CO2 31 mmol/L (21-32); CREATININE 0.9 mg/dL (0.6-1.0); GLUCOSE 166 mg/dL (74-106); POTASSIUM 3.6 mmol/L (3.5-5.1); SODIUM 142 mmol/L (136-145)
[2020-11-15 21:01] LABS: TROPONIN-I <0.06 ng/mL (<0.06)
[2020-11-15] MEDS ORDERED: DOXYCYCLINE 10100 MG PO (21:49)
[2020-11-15 21:59] LABS: URINE BILIRUBIN NEGATIVE (Negative); URINE BLOOD NEGATIVE (Negative); URINE CLARITY CLEAR; URINE COLOR YELLOW; URINE GLUCOSE-RANDOM* TRACE (Negative); URINE KETONES NEGATIVE (Negative); URINE NITRITE-REFLEX NEGATIVE (Negative); URINE PROTEIN (DIPSTICK) NEGATIVE (Negative); URINE SPECIFIC GRAVITY 1.015 (1.005-1.035); URINE UROBILINOGEN 0.2 E.U./dl (0.2-1.0)
[2020-11-15 22:07] LABS: URINE LEUKOCYTES-REFLEX 1+ (Negative)
[2020-11-15 22:08] LABS: BACTERIA-REFLEX 1-9 Few /HPF (None Seen); CASTS None Seen /LPF (None Seen); CRYSTALS None Seen /LPF (None Seen); MUCUS 0-3 Light strn/LPF (None Seen); SQUAMOUS 4-10 Moderate /LPF (0-3); URINE RBC 0-2 Rare /HPF (0-2); URINE WBC-REFLEX 0-5 Rare /HPF (0-5)
[2020-11-15 22:30] VITALS: BP 198/72
--- NOTE | 2020-11-19 07:20 | EKG ---
[place] [address] [facility] [place] [address] ELECTROCARDIOGRAM REPORT Name: GURPREET RUBALCAVA Room #: [facility]#: [id number] Admission: 11/15/20 Attend Phys: Discharge: 11/15/20 Date of : 46 Report #: [id number] 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 11/19/20 0720 35 35 Trey Castillo MD, FAC /EPI
== END 2020-11-15 22:30 | disposition home or self-care (01) ==
LOC: ER 19:28
PROVIDERS: Nurse Practitioner
DX: R06.00 Dyspnea, unspecified (principal); R07.9 Chest pain, unspecified; I10 Essential (primary) hypertension; E11.9 Type 2 diabetes mellitus without complications; Z79.899 Other long term (current) drug therapy; Z88.2 Allergy status to sulfonamides; Z20.828 Contact with and (suspected) exposure to other viral communicable diseases

== ENCOUNTER 2021-09-30 10:34 | Emergency (ER) | payer OTHER ==
[~2021-09-30] VITALS: Ht 154.9 cm; Wt 66.7 kg
[~2021-09-30 10:34] MED LIST changes: +DOXYCYCLINE 10100 MG PO
[2021-09-30 11:01] LABS: HEMATOCRIT 44.2 % (37.0-47.0); HEMOGLOBIN 14.3 gm/dL (12.0-15.0); MCH 34.5 pg (26.0-34.0); MCHC 32.3 g/dL (28.0-37.0); MCV 106.8 fL (80.0-100.0); PLATELET COUNT 142 thou/uL (150-400); RBC 4.14 mil/uL (4.20-5.00); RDW 14.4 % (10.5-14.5); WBC 9.6 thou/uL (4.0-11.0)
[2021-09-30 11:22] LABS: URINE BILIRUBIN NEGATIVE (Negative); URINE BLOOD 1+ (Negative); URINE CLARITY SL CLOUDY; URINE COLOR YELLOW; URINE GLUCOSE-RANDOM* NEGATIVE (Negative); URINE KETONES NEGATIVE (Negative); URINE LEUKOCYTES-REFLEX TRACE (Negative); URINE PROTEIN (DIPSTICK) TRACE (Negative); URINE SPECIFIC GRAVITY 1.025 (1.005-1.035); URINE UROBILINOGEN 0.2 E.U./dl (0.2-1.0)
[2021-09-30 11:25] LABS: URINE NITRITE-REFLEX POSITIVE (Negative)
[2021-09-30 11:36] LABS: CALCIUM 9.3 mg/dL (8.5-10.1); CREATININE 1.2 mg/dL (0.6-1.0)
[2021-09-30 11:42] LABS: ALBUMIN 2.9 g/dL (3.4-5.0); TOTAL BILIRUBIN 0.8 mg/dL (0.2-1.0); TOTAL PROTEIN 6.4 g/dL (6.4-8.2)
[2021-09-30 11:50] LABS: SQUAMOUS 0-3 Few /LPF (0-3)
[2021-09-30 11:53] LABS: URINE RBC 3-10 Few /HPF (NONE SEEN); URINE WBC-REFLEX 6-15 Few /HPF (0-5)
[2021-09-30 11:54] LABS: CRYSTALS None Seen /LPF (None Seen)
[2021-09-30 11:57] LABS: HYALINE CASTS 0-3 Few /LPF (None Seen)
[2021-09-30 12:06] LABS: ABSOLUTE NEUTROPHILS 8.1 thou/uL (1.4-8.2); METAMYELOCYTES 1 %
[2021-09-30 12:08] LABS: MACROCYTES 1+; TOXIC GRANULATION 1+
[2021-09-30 12:09] LABS: MICROCYTES 1+; POLYCHROMASIA 1+
--- NOTE | 2021-09-30 12:53 | EKG ---
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: CLAUDIA : 1950 Requested By: Inez Rosales Order Number: [id number] MD: Trey Castillo Measurements Intervals [place] Rate: 105 P: 7 [place]: 127 QRS: -17 QRSD: 89 T: 29 QT: 329 QTc: 435 Interpretive Statements Sinus tachycardia Borderline left axis deviation Abnormal R-wave progression, late transition Minimal ST depression, lateral leads Compared to ECG 11/15/2020 19:36:30 ST (T wave) deviation now present Sinus rhythm no longer present Right ventricular hypertrophy no longer present T-wave abnormality no longer present Electronically Signed On 09-30-2021 12:52:52 BULK DRIVER by Trey Castillo [email or web address] <ELECTRONICALLY SIGNED> By: Trey Castillo MD, FACC 09/30/21 1252 1055 1055 Trey Castillo MD, FACC /EPI
[2021-09-30] MEDS ORDERED: MACROBID 100 M100 MG PO (12:54)
[2021-09-30 13:09] VITALS: BP 139/80
== END 2021-09-30 13:10 | disposition home or self-care (01) ==
LOC: ER 10:34
PROVIDERS: Student in an Organized Health Care Education/Training Program
DX: E86.0 Dehydration (principal); Z20.822 Contact with and (suspected) exposure to COVID-19; R19.7 Diarrhea, unspecified; N30.90 Cystitis, unspecified without hematuria; I10 Essential (primary) hypertension; E11.9 Type 2 diabetes mellitus without complications; Z79.899 Other long term (current) drug therapy; Z88.2 Allergy status to sulfonamides